=== PATIENT | female | born 1990 | race Caucasian/White ===

== ENCOUNTER → 2020-07-18 11:18 | Outpatient (CLI) | payer MEDICAID, SELFPAY ==
[2020-07-18 13:19] LABS: Absolute Lymphocyte Count 3.44 X10^3/uL (0.83-4.51); Absolute Neutrophil Count 9.6 X10^3/uL (2.0-7.7); Basophil# 0.09 X10^3/uL; Basophil% 0.6 % (0-1); Eosinophil# 0.31 X10^3/uL; Eosinophils% 2.1 % (0-5); Hematocrit 34.6 % (37-47); Hemoglobin 11.2 g/dL (12.0-15.0); Lymphocyte # 3.44 X10^3/ul (4.0); Lymphocyte % 23.3 % (19-41); Mean Corp Hgb Conc 32.4 g/dL (32-36); Mean Corpuscular Hgb 29.6 pg (27.0-32.0); Mean Corpuscular Volume 91.3 fL (81-99); Mean Platelet Vol. 11.3 fl (6.2-12.0); Monocyte# 1.16 X10^3/uL; Monocyte% 7.9 % (0-10); NRBC Flagged by Analyzer 0 % (0-5); Neutrophil # 9.64 X10^3/uL (2.7-7.7); Neutrophil % 65.4 % (47-70); Platelet Count 318 K/mm3 (150-450); RBC Distribution Width CV 15.6 % (11.6-14.6); RBC Distribution Width SD 51.3 fl (35.1-43.9); Red Blood Count 3.79 M/mm3 (4.2-5.4); White Blood Count 14.8 K/mm3 (4.4-11.0)
[2020-07-18 13:27] LABS: Glucose Challenge Gest 1H 50g 108 mg/dL (70-140)
[2020-07-18 14:13] LABS: HIV - WCH Non-Reactive (Nonreactive); Hepatitis B Surface Antigen Non-Reactive (Nonreactive); Hepatitis C Antibody Non-Reactive (Nonreactive); Rubella IgG Reactive (Nonreactive); Syphilis Antibodies Non-reactive
[2020-07-21 07:06] LABS: Chlamydia By Nucleic Acid AMP Negative (Negative)
[2020-07-21 12:35] LABS: Gonococcus By Nucleic Acid AMP Negative (Negative)
[2020-07-22 10:39] LABS: HPV Reflexed? NOT INDICATED
== END ==
PROVIDERS: Visit Provider Obstetrics & Gynecology
DX: Z34.83 Encounter for supervision of other normal pregnancy, third trimester (principal)
CPT/HCPCS: 36415; 82950; 85025; 86703; 86762; 86780; 86803; 87077; 87086; 87088; 87340; 87491; 87591; 88175; G0145

== ENCOUNTER 2020-09-11 04:55 | Inpatient (IN) | payer MEDICAID, SELFPAY ==
[2020-09-11] VITALS (43 sets, daily range): BP systolic 100–155; BP diastolic 51–101; PULSE 64–100; RESP 15–18; TEMP 36–37.1; O2SAT 93–100; BMI 31.3
[2020-09-11] MEDS: Lactated Ringers 1,000 ML 999 ML IV (05:15)
[2020-09-11 05:25] LABS: Absolute Lymphocyte Count 4.03 X10^3/uL (0.83-4.51); Basophil# 0.08 X10^3/uL; Basophil% 0.4 % (0-1); Eosinophil# 0.34 X10^3/uL; Eosinophils% 1.9 % (0-5); Hematocrit 34.8 % (37-47); Hemoglobin 11.6 g/dL (12.0-15.0); Lymphocyte # 4.03 X10^3/ul (0.83-4.51); Lymphocyte % 22.5 % (19-41); Mean Corp Hgb Conc 33.3 g/dL (32-36); Mean Corpuscular Hgb 29.4 pg (27.0-32.0); Mean Corpuscular Volume 88.1 fL (81-99); Mean Platelet Vol. 10.9 fl (6.2-12.0); Monocyte# 1.32 X10^3/uL; Monocyte% 7.4 % (0-10); NRBC Flagged by Analyzer 0 % (0-5); Neutrophil # 11.99 X10^3/uL (2.7-7.7); POSITIVE MORPHOLOGY YES; Platelet Count 314 K/mm3 (150-450); RBC Distribution Width CV 16.1 % (11.6-14.6); RBC Distribution Width SD 52.2 fl (35.1-43.9); Red Blood Count 3.95 M/mm3 (4.2-5.4); White Blood Count 17.9 K/mm3 (4.4-11.0)
[2020-09-11] MEDS: Ondansetron 4 MG/2 ML Vial IV (05:44)
[2020-09-11 05:55] LABS: Differential Indicated SCAN CRITERIA MET
--- NOTE | 2020-09-11 06:21 | HP.PCM.OB_ITS ---
HPI - General General Date of Admission: 09/11/20 HPI Narrative Manisha Ladd is a 29-year-old 6 para 4-0-1-4 presenting with painful contractions and leaking of fluid. complicated by late and limited care. Maternal Data Information ANN Calculator Estimated Delivery Date Method Current WG Current Estimate 09/27/20 Ultrasound #1 37w 6d PFSH Allergy/AdvReac Type Severity Reaction Status Date / Time ciprofloxacin Allergy Hives Verified 09/11/20 05:35 ibuprofen [From Motrin] Allergy Anaphylaxis Verified 09/11/20 05:35 Family History (Updated 09/11/20 @ 06:[address] Janelle Benito MD) Father Diabetes Asthma Mother Asthma Surgical History History of tonsillectomy and adenoidectomy Hx of tonsillectomy Social History Smoking Status: Light Smoker (<10/day) History 6 Elective abortions 0 Hx Para 4 Spontaneous abortions 1 Hx # Term Pregnancies 4 Ectopic pregnancies 0 Hx # Pregnancies 0 Multiple births 0 # of living children 4 Past Pregnancies Del. Date Name GA/Weeks Outcome Route Bth Weight Infant Gen Labor Lgth Anesthesia Del Locatn Provider FOB Unknown Delivery Date: PRIOR DELIVERY HISTORY DEL DATE GEST LAB WT LB WT OZ TYPE ANES LABOR TX 02 Mar 04 42 24 8 12 Vag Local No September 05 38 2 8 4 Vag Local No Apr 02 6 0 0 0 Sab None No 23 Sep 17 37 12 7 6 Vag Epidural No 24 Sep 19 38 2 7 0 [facility] Baby A Baseline: 130 Variability:: Moderate Accelerations:: 15 x 15 Decelerations:: None NST Reactive:: Yes FHR Category:: Category I Uterine Activity:: 2-07/02 Vital Signs Vital Signs Vital Signs: 09/11/20 05:08 09/11/20 05:10 09/11/20 05:23 Temperature 98.4 F Pulse Rate 92 84 Blood Pressure 137/92 H BP Systolic 137 BP Diastolic 92 Pulse Ox 96 98 09/11/20 06:10 09/11/20 06:15 09/11/20 06:19 Temperature Pulse Rate 89 89 82 Blood Pressure 134/78 H BP Systolic 134 BP Diastolic 78 Pulse Ox 98 98 Physical Exam Const alert, oriented x3 and no apparent distress Resp normal respiratory effort, normal air movement and clear to auscultation bilaterally Cardio regular rate, regular rhythm, S1 normal heart sound and S2 normal heart sound GI normal to inspection, nondistended, normoactive bowel sounds, soft to palpation, non-tender and non-distended Inspection: gravid Manual OB Exam: dilated 4 per RN C Michelet exam, effaced 80, station -2 and other Uterus Palpation: other OB Extremity no calf tenderness Labs Labs Labs: Blood Type O POSITIVE Antibody Screen NEGATIVE Hct 34.8 % (37-47) L Hgb 11.6 g/dL (12.0-15.0) L Syphilis Total Ab Non-reactive Rubella IgG Antibody Reactive (Nonreactive) Hep Bs Antigen Non-Reactive (Nonreactive) Neisseria gonorrhoeae DNA (MANOJ) Negative (Negative) HIV 1&2 Antibody Non-Reactive (Nonreactive) Glucose 1 Hr 50 gm 108 mg/dL (70-140) Group B Strep DNA Negative (Negative) Rhogam given: No ANTEPARTUM FLOW CHART VISIT [facility] FU F F AZ U U DATE WK MD WKS HT PN HR M SS BP ED WT AZ GL D EF ST __ ____ ___ __ __ ___ __ __ __ ___ __ __ __ ___ __ 22 Jul JM 2 33 V + + 110/80 0 175 tr ne Jul 21 JM 2 2 B on + 140/98 0 169 1+ - ANTEPARTUM NOTE(S): Aug 14 2020: Jul 18 2020: LMP 12/01/19 COMPREHENSIVE ANTEPARTUM NOTE(S): Aug 14 2020: Manisha is here for PNV. States she is feeling well and able to eat and drink without dificulty. Having good FM. No problems with edema. Declines any genetic/carrier screenings. No complaints today. Urine tr/neg. LSS Aug 14 2020: 33wk, for growth u/s at next visit with late care and 29wk dating u/s. Jul 24 2020: TELEHEALTH NOB VISIT, 40 MINUTE DURATION. Manisha is a 29 yr old A1 with an ANN of 09/27/2020, current GA is 30 w 5 d. She is a new patient to this office, and had her first PNV last week. She states that until the last few weeks she did not know that she was . Manisha resides with her [facility], her four children, and two nieces (ages 11 and 13), of whom she currently has custody. She Jul 18 2020: 29wk, at 29wk/6d with FINAL ANN: 09/27/20 by 29wk u/s with unsure lmp. U/s today anatomy wnl. Arrives for late care, has not previously seen anybody. Previously with Term SVDs, no issues with blood pressure or blood sugars. U/s today shows breech, will consider re-u/s and connie wth with breech and late care. For PNP today, 1hr GTT today, G/c and pap today. Declines genetic screen REVIEW OF SYSTEMS: GENERAL - Denies fever, or chills SKIN - Denies rash, new skin lesions, or change in moles EYES - Denies blurred vision, or change in visual acuity EARS - Denies ear pain, or difficulty hearing NOSE - Denies nasal congestion, discharge, or bleeding MOUTH - Denies sore throat, or difficulty swallowing NECK - Denies pain or swelling RESPIRATORY - Denies shortness of breath, cough, wheezing CARDIOVASCULAR - Denies palpitations, chest pain, orthopnea, PND, peripheral edema, syncope or claudication GASTROINTESTINAL - Denies nausea, vomiting, diarrhea, constipation, Denies abdominal pain, melena and or bright red blood GENITOURINARY - Denies dysuria, frequency of urination, urgency, or hesitancy MUSCULOSKELETAL - Denies joint or muscle pain, or back pain NEUROLOGICAL - Denies localized numbness, weakness, or tingling PSYCHIATRIC - Denies depression, anxiety, substance abuse or suicide attempts ENDOCRINE - Denies heat or cold intolerance, weight loss or gain, increasing thirst HEMATO-IMMUNOLOGIC - Denies easy bruising, bleeding, oral ulcerations or recurrent infections GENETICS SCREENING: Age 35+ years: No Thalassemia: No Neural Tube Defect: No Down Syndrome: No ESDRAS-SACHS: No Sickle Cell Disease: No Hemophilia: No Musc. Dystrophy: No Cystic Fibrosis: No-declines screening [place] Chorea: No Mental Retardation: No Fragile X: No Other genetic: Yes, daughter, CDH Other defects: Yes, daughter, CDH SABs/still births: No Drugs since LMP: No Comments: Daughter epilepsy INFECTION HISTORY: High risk AIDS: No High risk Hepatitis: No Exposed to TB: No Exposed to Herpes: No Rash/viral illness since LMP: No History of STD: No MENSTRUAL HISTORY: *Menses Amount/Duration: 5-7 days* PAST SUMMARY: PARITY: 1. Total Pregnancies............ 6 2. Full Term Pregnancies........ 4 3. Premature.................... 0 4. Abortions - Induced.......... 0 5. Abortions - Spontaneous...... 1 6. Ectopics..................... 0 7. Multiple Births.............. 0 8. Living Children.............. 4 PAST #1: Date of :.................. 04/13/09 Gestation Weeks:................ 6 Length of labor(hours):......... 0 Sex:............................ Weight-lbs:............... 0 Weight-oz:................ 0 Type of Delivery:............... Sab Type of Anesthesia:............. None Place of Delivery:.............. none Treatment of Labor?:.... No Comment: DATE APPROX., NO D+C PAST #2: Date of :.................. 02/24/10 Gestation Weeks:................ 42 Length of labor(hours):......... 24 Sex:............................ F Weight-lbs:............... 8 Weight-oz:................ 12 Type of Delivery:............... Vag Type of Anesthesia:............. Local Place of Delivery:.............. [place] Treatment of Labor?:.... No Comment: IOL, MAN.REMOVAL PLACENTA PAST #3: Date of :.................. 09/09/13 Gestation Weeks:................ 38 Length of labor(hours):......... 2 Sex:............................ M Weight-lbs:............... 8 Weight-oz:................ 4 Type of Delivery:............... Vag Type of Anesthesia:............. Local Place of Delivery:.............. [place] Treatment of Labor?:.... No Comment: PRECIP LABOR PAST #4: Date of :.................. 01/15/17 Gestation Weeks:................ 37 Length of labor(hours):......... 12 Sex:............................ F Weight-lbs:............... 7 Weight-oz:................ 6 Type of Delivery:............... Vag Type of Anesthesia:............. Epidural Place of Delivery:.............. [place] Treatment of Labor?:.... No Comment: IOL, CDH, NICU X 2 M PAST #5: Date of :.................. 01/16/19 Gestation Weeks:................ 38 Length of labor(hours):......... 2 Sex:............................ F Weight-lbs:............... 7 Weight-oz:................ 0 Type of Delivery:............... Vag Type of Anesthesia:............. None Place of Delivery:.............. [place] Treatment of Labor?:.... No Comment: PRECIP LABOR Assessment & Plan (1) 37 weeks gestation of : PLAN: Epidural per pt request Anticipate
[2020-09-11] MEDS: fentaNYL-bupivacaine (epidural) 100 ML BAG EPIDURAL (06:30)
[2020-09-11 07:15] LABS: ALB/GLOB Ratio 0.6 RATIO (0.9-2.4); AST(SGOT) 11 U/L (15-37); Alanine Aminotransfer ALT/SGPT 16 U/L (13-56); Albumin, Serum 2.3 g/dL (3.2-5.0); Alkaline Phosphatase 245 U/L (45-117); Anion Gap 6 (5-15); BUN 8 mg/dL (7-18); BUN/Creat Ratio 16.4 RATIO (10-20); Calcium,Total 8.6 mg/dL (8.5-10.1); Chloride 106 mmol/L (98-107); Creatinine, Serum 0.49 mg/dL (0.55-1.02); EST Glomerular Filtration Rate 161 mL/min (>60); Est Glom Filt Rate - Afr Amer 195 mL/min (>60); Estimated Creatinine Clearance 142.66 ml/min; Globulin 4.1 g/dL (2.2-4.2); Glucose 94 mg/dL (74-106); LDH 169 U/L (84-246); Protein, Total 6.4 g/dL (6.4-8.2); Sodium Level 135 mmol/L (136-145); Uric Acid 4.5 mg/dL (2.6-6.0)
[2020-09-11] MEDS: Oxytocin 30 units/NS 500 ml 30 UNITS/500 ML IV.SOLN 334 UNITS IV (07:28)
[2020-09-11 07:41] LABS: Amphetamine Urine VISTA NEGATIVE (<1000 ng/mL); Barbiturate Urine VISTA NEGATIVE (< 200 ng/mL); Benzodiazepine Urine VISTA NEGATIVE (< 200 ng/mL); Cocaine Urine VISTA NEGATIVE (< 300 ng/mL); Ecstacy Urine VISTA NEGATIVE (< 500 ng/mL); Methadone Urine VISTA NEGATIVE (< 300 ng/mL); PCP Urine VISTA NEGATIVE (< 25 ng/mL); THC Urine VISTA NEGATIVE (< 50 ng/mL); Vista UDS pH Range 7
[2020-09-11 07:56] LABS: Group B Strep DNA By PCR Negative (Negative); Internal Control PASS; Probe Check PASS; Specimen Processing Control PASS
[2020-09-11] MEDS: Acetaminophen 325 MG Tablet PO (08:36)
--- NOTE | 2020-09-11 10:42 | EX.PCM.OBRPT ---
Assessment & Plan (1) (spontaneous vaginal delivery): Maternal Data Information ANN Calculator Estimated Delivery Date Method Current WG Current Estimate 09/27/20 Ultrasound #1 37w 5d Vaginal Delivery Maternal Presentation Maternal Presentation: Active Labor Operative Information Date of Procedure: 09/11/20 Pre-Operative Diagnosis: 37 5/7 weeks gestation, labor Post-Operative Diagnosis: 37 5/7 weeks gestation, Surgery / Procedure Performed: Spontaneous Vaginal Delivery Type of Anesthesia: Epidural Anesthesiologist: Jovani Estimated Blood Loss: 200 ml Findings Description of Procedure: Patient fully dilated and pushed to deliver a vigorous . The infant was placed on the maternal abdomen and further attended by nursery personnel. The cord was doubly clamped and cut. The placenta delivered spontaneously and appeared intact on inspection. Fundus was firm. There was good hemostasis. Presentation: Vertex Amniotic Membrane Rupture Type: Spontaneous Amniotic Fluid Description: Clear Placental Delivery Description: Spontaneous Placenta Disposition: [facility] Cord Vessel Description: 3 Vessels Cord Entanglement: Around neck x 1, loose Nuchal Cord Compression: Without compression Infant A Gender: Male (1 minute): 8 (5 minute): 9 Delayed Cord Clamping: Yes Post Vaginal Delivery Medications Given After Delivery: IV Pitocin Episiotomy Description: None Laceration: None
[2020-09-11] MEDS: CLARIFY ORDER 1 EACH NOTE (10:45)
--- NOTE | 2020-09-11 16:08 | CASEMGMT ---
Social Work Assessment Labor and Delivery Unit Patient Address: [address] [place] [id number] Phone number: [phone] Date of Referral: 09/11/2020 Time of Referral: 1055 Referred By: Dr. Lisa Benito Date of Intervention: 09/11/2020 Time of Intervention: 1545 Reason for Referral: Late care and limited support History obtained from: Medical records and mother of baby (CHRISTINE) Manisha Ladd Household composition: CHRISTINE currently lives with her parents, MOB for older children, and MOB 2 nieces. MOB reports there is enough room in the home, and to feel home situation is safe and adequate. Patient's parent/guardian status: CHRISTINE is a 29-year-old single female. The father of baby is not identified, but is reported to be living in [place]. CHRISTINE reports uncertainty whether the father of baby will be involved in the future. CHRISTINE now has 5 children, different paternity for each child. Minor children include: Romy (born 02/24/2010, delivered in [place] as MOB's parents lived there and MOB moved to [place] to be close to family) Ger (born 09/09/2013, delivered in [place], [place]) Martha (born 01[birth year]2017, delivered at 37 weeks gestation via induction in [facility]; living in [place], [place] at the time however.) Brittney (born 01/16/2019, delivered in [place], [place]) baby is not yet named, but delivered today 09/11/2020. CHRISTINE reports she currently has temporary custody of 2 of her nieces: Gladys, age 13 and Griselda, age 11. Medical History: CHRISTINE is 8, para 4 now 5 after delivering baby boy. care started late at 29 weeks gestation on 07/18/2020. CHRISTINE states she did not know she was , and would not have known until started gaining some weight. MOB reports belief she must have had some periods at the beginning of the . MOB reports she went to all scheduled care appointments. Reports she went to her initial appointment, then had one telehealth, and then went to the next appointment where ultrasound and glucose testing was done. CHRISTINE reports was to have her next appointment this week, but delivered the baby early at 37 weeks gestation. Infant delivered weighing 6 pounds 11 ounces. Apgars 8 and 9 at 1 and 5 minutes of life. *Note that the MOB oldest child developed epilepsy around the age of 5 or 6 and MOB third child was born with CHD, resulting in surgery and a 3-month NICU stay. Educational Status: CHRISTINE has her GED. Reports no issues with reading, writing or learning comprehension. Financial Status: MOB reports to receive child support for her children and then ayala assistance for the nieces. MOB receives food card and WIC. MOB father, with whom the MOB lives, still works. Supplies: MOB reports to have needed infant supplies including a bassinet, car seat, clothing, diapers, wipes, bottles, and at this point 1 can of formula. Childcare/Caregiver(s): CHRISTINE is the primary caregiver of now 7 children. MOB reports she receives help from her parents for short periods of time if needed. Transportation: MOB reports to have a emt driver's license and transportation, denying any issues. Programs/Agencies Involved: Active with job and family services for food, medical, and ayala assistance. Reports to be active with WIC. Reports to have a help me grow worker for her youngest child, and just finishing up help me grow for her third child. Reports that the nieces are active at the counseling center of [facility]. Currently working with [facility] children services related to Gladys and Valerie's placement with the MOB. Children Services/Legal Issues: CHRISTINE denies any legal history for herself. Denies any children services history for herself. Is working with [facility] children services related to her nieces. MOB reports there is court ordered protective supervision to oversee his new placement, which occurred in May 2020. MOB reports she was the only family member who is willing to take both girls, rather than separate them. MOB reports the children services worker checks on the family once every 2 weeks. Behavioral Health Issues: Mental Health History: MOB denies any history of depression, anxiety, bipolar disorder, depression or anxiety. Denies any history of suicidal ideations. Substance Use History: MOB denies any substance use or abuse issues for herself. Denies any use or history of marijuana, heroin, cocaine, meth, or pills. Does drink on a rare occasion, but not during . Reports to typically only have 1 drink when she is out to dinner and has no children around, which MOB reports his not often. Reports to smoke tobacco, about a half a pack every couple of days. Family History: MOB reports believe that her mother has some type of mental health issues. Reports that the oldest child Romy has epilepsy. Reports her son Ger has Tourette's. Reports that Brittney is believed to have autism. The MOB nieces are currently in mental health counseling. Drug Screens: No drug testing noted. Maternal drug screen upon admission negative on 09/11/2020. Baby's urine is negative on 09/11/2020. Meconium is pending. Family/Social Stressors: MOB reports she does not typically get stressed out and describes self to be a patient person. Although MOB does not endorse any current stressors or things that overwhelm her, the MOB has had some significant life changes within this last year. Unplanned though accepted. Obtaining temporary custody of her nieces in May 2020. Moving from [facility], to [facility] in order to be closer to her parents and help her father out who reportedly has cardiac issues. Although her father does have cardiac issues, the MOB reports her father still works. No involvement by the current FOB. Limited involvement by the other fathers. Support Systems: MOB reports she is the type of person who likes to handle things on her own, to be independent. MOB reports she will ask for help when needed, but typically does things herself. CHRISTINE's parents are reported to be sources of support to help watch the children when needed, for short periods of time. Reports to talk daily to her son's aunt. Depression/Shaken Baby/Safe Sleeping: MOB reports awareness of what safe sleeping means. Able to give appropriate responses on shaken baby prevention. Educated to depression and anxiety, risk factors, and importance of seeking out help and support. MOB denies any concerns about depression or anxiety for herself. ASSESSMENT: Met with the MOB in her room, with MOB holding a sleeping baby in a cradle hold. MOB gentle, and intermittently looked at the baby and smiled. MOB reports to feel connection to the baby at this point. MOB held good eye contact. Affect constricted though did smile at appropriate times. MOB reports to have needed supplies for the baby. Denies concerns about lack of support or visitors here at the hospital, and reports desire to be able to go home soon as possible. MOB appearing guarded at times, as evidenced by looking at this chief writer prior to answering questions, almost a delayed response. However after conversation went on, the MOB became more talkative with this chief writer. MOB declined to help me grow referral for this baby, and indicates awareness of how to get infant connected with services if needed. MOB agreeable for social services to check back in tomorrow and provide resources for home-going. CHRISTINE denies any safety concerns in her household or with anybody in her life at this point. CHRISTINE reports she is uncertain of the name for her baby, and wants to speak with her other children this evening before making a decision. PLAN: Social work to continue to follow and assist during hospital stay. We will plan to see CHRISTINE again in the morning on 09/12/2020. -PERLA Ramos MSW *Information documented in this assessment generated with [employer]*
[2020-09-11] MEDS: Acetaminophen 500 MG Tablet 1000 MG PO (19:11)
[2020-09-12 00:10] VITALS: BP 133/57; PULSE 66; RESP 18; TEMP 36.2
[2020-09-12 04:20] VITALS: BP 128/71; PULSE 70; RESP 18; TEMP 36.2
[2020-09-12] MEDS: Acetaminophen 500 MG Tablet 1000 MG PO (04:56)
[2020-09-12 08:06] VITALS: BP 122/75; PULSE 74; RESP 16; TEMP 36.4
--- NOTE | 2020-09-12 09:28 | PCM.DC.SUM ---
Providers Date of Admission: 09/11/20 Reason For Visit: VAGINAL DELIVERY Diagnosis Discharge Diagnosis (1) (spontaneous vaginal delivery): Status: Acute Code(s): O80 - Encounter for full-term uncomplicated delivery Hospital Course Operations None Procedures None Summary of Care Provided Hospital Course: 29yo 6 para 4-0-1-4 admitted in active labor at 37 5/7 weeks. She had an uncomplicated . She was discharged home on day 1. Physical Exam Narrative No issues overnight. Out of bed and ambulating without difficulty. Denies voiding difficulty. Denies heavy lochia. She is bottlefeeding. Const alert, oriented x3 and no apparent distress Resp normal respiratory effort and normal air movement Cardio regular rate, regular rhythm, S1 normal heart sound and S2 normal heart sound Uterus Palpation: uterus fundus firm and other OB fundus nontender Extremity no calf tenderness Neuro oriented x3 ABG / Lab / Microbiology Data Result Diagrams: 09/11/20 05:15 09/11/20 05:15 Microbiology: Microbiology 09/11/20 05:15 SARS-CoV-2 Antigen (Rapid) - Final Interface Orders Microbiology 09/11/20 05:15 Interface Orders SARS-CoV-2 Antigen (Rapid) - Final D/C Instructions Discharge Diet: No restrictions Discharge Activity: Return to Normal Activity, May Shower and May Take a Tub Bath May resume sexual activity in: 4-6 weeks Lifting Restricted to (Lbs): 20 Call your doctor if you observe: Fever of 101 or Higher, Using more than one pad per hour, Shortness of breath, Chest pain, Calf discomfort, Uncontrolled pain and - (Persistent or severe headache) Please Follow Up With: Ronal Bryan MD When: 3 weeks for telehealth follow up 6 weeks for visit Meaningful Use Info Meaningful Use Diagnoses (Choose all that apply): None applicable Discharge Plan Admission Admit Date/Time: 09/11/20 04:55 Primary Reason for Your Visit: Vaginal delivery Attending Provider: Janelle Valdes Instructions Patient Instructions: After a Vaginal
--- NOTE | 2020-09-12 09:44 | NURSING ---
Infant CPR video teaching complete.
[2020-09-12 11:49] VITALS: BP 132/77; PULSE 74; RESP 18; TEMP 36.2
--- NOTE | 2020-09-12 15:50 | CASEMGMT ---
Social Work Labor and Delivery Unit Chart reviewed. Spoke with nursing staff. No new concerns identified. Mother of baby (MOB) reportedly providing care to the baby overnight without issue. Met with the MOB prior to discharge. MOB denies any concerns overnight, or any concerns with home-going. Provided MOB with a [facility] resource list. Provided information on mood and anxiety disorders, including resources for follow-up and support if needed. MOB is connected with the various community agencies already for her older children, and has reported that if additional needs arise has no issues asking for help if needed. Plan: MOB and baby to discharge home. Family available to help. We will monitor for baby's meconium drug screens and make appropriate referrals if indicated. No other services requested or indicated at this time. -IVETTE Ramos, SCIENTIFIC DATABASE CURATOR *Information from this note generated via the [employer]ited[employer] system.*
--- NOTE | 2020-10-01 16:02 | CASEMGMT ---
Social Work Labor and Delivery Unit Meconium drug screen results are back and negative for drugs of abuse. No further referrals are indicated. -IVETTE Ramos, LEAD CYTOGENETIC TECHNOLOGIST
== END 2020-09-12 12:32 | disposition home or self-care (01) | DRG 560 ==
LOC: WPOUT 05:00 → WP 05:00
PROVIDERS: Admitting Provider Obstetrics & Gynecology; Visit Provider Obstetrics & Gynecology
DX: O69.81X0 Labor and delivery complicated by cord around neck, without compression, not applicable or unspecified (principal); F17.200 Nicotine dependence, unspecified, uncomplicated; O99.334 Smoking (tobacco) complicating childbirth; Z3A.37 37 weeks gestation of pregnancy; Z37.0 Single live birth
CPT/HCPCS: 59050; 80053; 80307; 83615; 84550; 85025; 86850; 86900; 86901; 87081; 87426; 87653; 99218; J7120; G0378; J2405

== ENCOUNTER 2021-05-06 13:10 | Emergency (ER) | payer MEDICAID, SELFPAY ==
[2021-05-06 13:12] VITALS: BP 134/77; PULSE 75; RESP 16; TEMP 37.5; O2SAT 94; BMI 24.3
--- NOTE | 2021-05-06 13:29 | EX.ED.VIS.HA ---
HPI History of Present Illness Chief Complaint: Headache Informant: patient Onset/Context/Timing Onset: Days Context: Gradual Timing: Continuous Quality -Headache: Positive for Sharp Current Severity: Moderate Maximum Severity: Moderate Associated Symptoms/Injury Associated Symptoms: Positive for Nausea, Vomiting and Photophobia; Negative for Fever, Sore Throat, Sinus Pressure, Numbness, Tingling, Preceding Aura, Visual Changes, Blurred Vision and Visual Loss Injury - OROPEZA: Negative for Direct Trauma, Fall and Assault Narrative Narrative: 30-year-old female states she had a headache since last Tuesday. Is been constant. Gradual onset and notes diffuse. Associated nausea and vomiting. No diarrhea. Chills without fever. No trauma. No history of significant headaches. No family history of brain aneurysm or intracranial bleed. She has no past medical history. Prior similar symptoms: No Recent Illness/Hospitalization: No PFSH PFSH Medical History no medical history no medical history Home Medications NK 05/06/21 [History Last Taken Unknown] Allergy/AdvReac Type Severity Reaction Status Date / Time ciprofloxacin Allergy Hives Verified 05/06/21 13:11 ibuprofen [From Motrin] Allergy Anaphylaxis Verified 05/06/21 13:11 Family History Father Diabetes Asthma Mother Asthma no significant family history Surgical History History of tonsillectomy and adenoidectomy Hx of tonsillectomy Social History Smoking Status: Light Smoker (<10/day) ROS ROS ED ROS Narrative Headache with nausea and vomiting. Chills. Review of Systems ROS Unobtainable: Denies due to encephalopathy Constitutional Constitutional ED: Reports chills Eyes Eyes: Denies change in vision ENT ENT ED: Denies ear pain or rhinorrhea Cardiovascular Cardiovascular: Denies chest pain Respiratory/Chest Respiratory/Chest: Denies cough, dyspnea or sputum Gastrointestinal Gastrointestinal: Reports nausea and vomiting; Denies abdominal pain or diarrhea Genitourinary Genitourinary ED: Denies dysuria or hematuria Musculoskeletal Musculoskeletal: Denies myalgias Integumentary Denies rash Neurologic Neurologic: Reports headache(s) Psychiatric Psychiatric: Denies depression Endocrine Endocrinology: Denies polyuria Hematologic/Lymphatic Hematologic/Lymphatic: Denies easy bruising Allergic/Immunologic Allergic/Immunologic ED: Denies urticaria EXAM Physical Exam Narrative Exam Narrative: 30-year-old female no acute distress vital signs stable afebrile temperature 99.5. Does not look septic or toxic. HEENT exam dry mandelate EXTR intact. No signs of trauma to her head or face. Neck nontender no meningismus. No lymphadenopathy. Able to flex her chin to chest. Lungs clear to auscultation bilaterally. Heart regular rate and rhythm no murmur. Abdomen soft nontender. Moving all 4 extremities. Neurovascular intact. Normal family engagement specialist strength. Normal dorsal plantar flexion. Neurologic exam normal NIH is 0. Awake alert. Answer questions following commands. No focal motor deficits. Back nontender. Skin unremarkable. No rashes. Const Vital Signs: 05/06/21 13:12 Temperature 99.5 F H Temperature Source Temporal Pulse Rate 75 Respiratory Rate 16 Blood Pressure 134/77 H Blood Pressure Mean 96 Pulse Ox 94 Oxygen Delivery Method Room Air Positive well nourished and well developed; Negative for obese, cachectic, contractures or unkempt General Appearance ED: well developed and NAD; Negative for unkempt, cachectic, contractures, cyanotic, diaphoretic or pallor Nutritional Appearance: Negative for cachectic or obese HEENT Reports normocephalic and moist mucous membranes Negative for trauma or tenderness Eyes PERRL and EOMs intact bilaterally General Eye ED: Negative for pale conjunctiva or scleral icterus Neck no lymphadenopathy, supple, no meningeal signs and no JVD General: Negative for tenderness Resp normal respiratory effort and clear to auscultation bilaterally Auscultation: Negative for rales, rhonchi or wheezes Cardio regular rate, regular rhythm, S1 normal heart sound, S2 normal heart sound and no murmurs GI non-tender and non-distended Auscultation: normoactive bowel sounds Palpation: soft; Negative for firm, tender, guarding or rigid Back/Spine no CVA tenderness General Back: Negative for CVA tenderness or tenderness Cervical Spine: Negative for cervical spine tenderness Thoracic Spine / Upper Back: Negative for thoracic spinal tenderness Extremity normal to inspection and full ROM General Extremety ED: Negative for edema or tenderness General Extremity: Negative for edema Neuro oriented x3, CN's II-XII intact bilaterally and no sensory deficits noted Neuro Narrative: Neurologic exam normal. Sensorium / Orientation: awake, alert, oriented to person, oriented to place and oriented to time; Negative for orientation impaired, lethargic or stuporous Motor Exam: strength 5/5 throughout Psych mental status grossly normal Appearance: Negative for unkempt Attitude: No agitated Mood & Affect: Negative for depressed or tearful Skin General Skin Exam: Negative for jaundice or pallor Lesions: no lesions Rashes: no rashes MDM MDM MDM Narrative Medical decision making narrative: 30-year-old female with a headache for a week. May be COVID-related. COVID test pending. She has normal neurologic exam and otherwise benign evaluation. She be treated IV fluids, Toradol and Zofran. COVID test pending. At this time I do not think she needs imaging. Repeat exam patient is doing well at 3:50 PM. Exam is unchanged. Said her headache improved and now it is returned. Her neurologic exam remains normal. With her COVID test being negative I will obtain a CT of her brain. If that is okay she can be discharged to home. Discharge Plan Triage Chief Complaint: Headache ED Provider: Philip Morales Dx/Rx/DC Orders Clinical Impression: Headache Instructions: ED Headache Unspecified Prescriptions: No Action NK RF: 0 Primary Care Provider: Care Physician,No Primary Referrals: Dilip Adame MD [STAFF PHYSICIAN] - 3-5 Days if not improving Care Physician,No Primary [Primary Care Provider] - Activity Restrictions/Additional Instructions: Plenty of fluids and rest. Alternate Tylenol and Motrin for pain. Return if feeling worse. Disposition Disposition: Home, Self Care
[2021-05-06] MEDS: Ketorolac 30 MG/ML Syringe IV (13:48)
[2021-05-06] MEDS: Ondansetron 4 MG/2 ML Vial IV (13:48)
[2021-05-06] MEDS: 0.9% Normal Saline 1,000 ML 1000 ML IV (13:49)
--- NOTE | 2021-05-06 15:50 | CT_ITS ---
STUDY: CT BRAIN WITHOUT CONTRAST REASON FOR EXAM: Female, 30 years old. headache TECHNIQUE: Transaxial CT imaging of the brain was performed without administration of intravenous contrast material. Individualized dose optimization techniques were used for this CT. COMPARISON: None FINDINGS: Normal calvarium. Normal soft tissues. Normal size ventricles and extra-axial spaces for the patient''s age. Normal white matter tracts of the cerebral hemispheres. Normal basal ganglia and thalami. Normal brainstem. Normal cerebellum. There is no intracranial hemorrhage. There are no findings of an acute ischemic infarction. Normal visualized paranasal sinuses. ASPECTS 10 CT/Brain/Head without Contrast IMPRESSION: There are no acute intracranial findings. Electronically Signed: Lanre Madera MD at 16:25 EST , Service support ,
[2021-05-06 16:46] VITALS: BP 143/72; PULSE 71; RESP 16; O2SAT 98
== END 2021-05-06 16:46 | disposition home or self-care (01) ==
PROVIDERS: Emergency Provider Emergency Medicine; Visit Provider Emergency Medicine
DX: R51.9 Headache, unspecified (principal); R11.2 Nausea with vomiting, unspecified; F17.200 Nicotine dependence, unspecified, uncomplicated; R68.83 Chills (without fever); Z20.822 Contact with and (suspected) exposure to COVID-19
CPT/HCPCS: 70450; 87426; 96361; 96374; 96375; 99283; J7030; J2405

== ENCOUNTER 2021-05-07 20:36 | Emergency (ER) | payer MEDICAID, SELFPAY ==
[2021-05-07 20:37] VITALS: BP 142/79; PULSE 66; RESP 18; TEMP 36.7; O2SAT 99; BMI 24.3
--- NOTE | 2021-05-07 21:00 | EX.ED.DYSGE1 ---
HPI History of Present Illness Chief Complaint: Nausea/Vomiting Detail of Chief Complaint: Nausea and vomiting with headache and aches Informant: patient and spouse/S.O. Onset/Context/Timing Onset: Yesterday Context: Sudden Onset Timing: Intermittent Quality: pain and aches. Respectively Location: EGD withVertex and generalized Current Severity: Moderate Maximum Severity: Severe Worsened by: Photophobia, sonophobia Relieved by: Nothing Associated Symptoms Associated Symptoms: Day nausea vomiting and aches level Narrative Narrative: Patient is a 30-year-old woman whose last menstrual period was the end of March. She presents because of headache and bifrontal discomfort with mild nasal congestion, sore throat. She states she had a fever yesterday. She does complain of aches and myalgias. Today she has had nausea and vomiting. He denies diarrhea. She had a COVID test yesterday which was negative. She denies rash. She does report decreased urine output and gets orthostatic symptoms. Prior similar symptoms: Yes Recent Illness/Hospitalization: Yes PFSH PFSH Home Medications NK 05/06/21 [History Last Taken Unknown] Allergy/AdvReac Type Severity Reaction Status Date / Time ciprofloxacin Allergy Hives Verified 05/07/21 20:40 ibuprofen [From Motrin] Allergy Anaphylaxis Verified 05/07/21 20:40 Family History Father Diabetes Asthma Mother Asthma Surgical History History of tonsillectomy and adenoidectomy Hx of tonsillectomy Social History (Updated 05/07/21 @ 21:[address] Moises Salas MD) household members: family Smoking Status: Light Smoker (<10/day) alcohol intake: current alcohol intake frequency: other ROS ROS ED Constitutional Constitutional ED: Reports chills, fever(s) and sweats; Denies subjective or weight loss Eyes Eyes: Denies blurry vision, change in vision or diplopia ENT ENT ED: Reports rhinorrhea and sore throat; Denies ear pain Cardiovascular Cardiovascular: Denies chest pain, orthopnea, palpitations or racing heartbeat Respiratory/Chest Respiratory/Chest: Reports cough; Denies dyspnea, dyspnea on exertion, orthopnea or sputum Gastrointestinal Gastrointestinal: Reports nausea and vomiting; Denies abdominal pain or diarrhea Genitourinary Genitourinary ED: Denies dysuria, hematuria or urinary frequency Musculoskeletal Musculoskeletal: Reports arthralgias and myalgias Integumentary Denies rash Neurologic Neurologic: Reports headache(s) and weakness; Denies paresthesias Endocrine Endocrinology: Denies polydipsia, polyphagia or polyuria EXAM Physical Exam Const Vital Signs: 05/07/21 20:37 Temperature 98.0 F Temperature Source Temporal Pulse Rate 66 Respiratory Rate 18 Blood Pressure 142/79 H Blood Pressure Mean 100 Pulse Ox 99 Oxygen Delivery Method Room Air Positive well nourished and well developed General Appearance ED: well developed, NAD and other Patient appears ill but not toxic. ; Negative for cyanotic, diaphoretic or pallor HEENT Reports TM's clear and dry mucous membranes Negative for trauma or tenderness Tympanic Membrane ED: Yes TM's clear Mouth ED: Yes dry mucous membranes Mouth: dry mucous membranes Eyes PERRL and EOMs intact bilaterally Eyes Narrative: There is no nystagmus. General Eye ED: Negative for pale conjunctiva or scleral icterus Neck supple and no JVD Neck Narrative: There is no meningeal findings. Resp normal respiratory effort and clear to auscultation bilaterally Effort and Inspection: Negative for pain with movement Cardio regular rate, regular rhythm, S1 normal heart sound, S2 normal heart sound and no murmurs GI normal to inspection, nondistended, normoactive bowel sounds, non-tender and non-distended Palpation: soft Back/Spine no CVA tenderness Cervical Spine: Negative for cervical spine tenderness Thoracic Spine / Upper Back: Negative for thoracic spinal tenderness or paraspinal muscle tenderness Extremity normal to inspection General Extremety ED: Negative for edema or tenderness General Extremity: Negative for edema Neuro oriented x3, CN's II-XII intact bilaterally and no sensory deficits noted Sensorium / Orientation: alert Motor Exam: strength 5/5 throughout Psych mental status grossly normal Mood & Affect: Negative for depressed or tearful Skin no rashes or lesions noted and no wounds General Skin Exam: Negative for jaundice or pallor MDM MDM MDM Narrative Medical decision making narrative: Patient has symptoms because of the viral infection. Suspect this cephalgia due to viral infection. Since she has allergy to Toradol she was treated with Benadryl and Reglan. Clinically she appears dehydrated. 1 L of normal saline was ordered. Patient did receive morphine since she reported no improvement. She was reassessed at 2302. She is smiling. She feels a little better. She was informed that she has a viral illness and may be ill for another 7 to 10 days. Discharge Plan Triage Chief Complaint: Nausea/Vomiting ED Provider: Moises Salas Dx/Rx/DC Orders Clinical Impression: Acute viral disease, Viral cephalgia, Dehydration, mild, Nausea & vomiting Instructions: ED Dehydration (Adult), ED Viral Syndrome (Adult) Prescriptions: No Action NK RF: 0 Primary Care Provider: Care Physician,No Primary Referrals: Care Physician,No Primary [Primary Care Provider] - Doctor,Your [STAFF PHYSICIAN] - Activity Restrictions/Additional Instructions: The name of your doctor or provider is located on your [facility] insurance card. You may be ill for another 7 to 10 days Drink plenty of fluids Take Tylenol or ibuprofen for your headache and discomfort Disposition Disposition: Home, Self Care
[2021-05-07] MEDS: Metoclopramide 10 MG/2 ML Vial IV (21:33)
[2021-05-07] MEDS: DiphenhydrAMINE 50 MG/ML Syringe 25 MG IV (21:33)
[2021-05-07] MEDS: 0.9% Normal Saline 1,000 ML 999 ML IV (21:33)
[2021-05-07] MEDS: Morphine 4 MG/ML Syringe IV (23:18)
== END 2021-05-07 23:42 | disposition home or self-care (01) ==
PROVIDERS: Emergency Provider Emergency Medicine; Visit Provider Emergency Medicine
DX: B34.9 Viral infection, unspecified (principal); R11.2 Nausea with vomiting, unspecified; F17.200 Nicotine dependence, unspecified, uncomplicated; R09.81 Nasal congestion; M79.10 Myalgia, unspecified site; R51.9 Headache, unspecified; E86.0 Dehydration
CPT/HCPCS: 96361; 96374; 96375; 99283; J7030; A4216

== ENCOUNTER → 2022-04-16 | Outpatient (CLI) | payer MEDICAID, SELFPAY ==
[2022-04-16 10:22] LABS: Absolute Lymphocyte Count 2.88 X10^3/uL (0.83-4.51); Absolute Neutrophil Count 11.1 X10^3/uL (2.0-7.7); Basophil# 0.06 X10^3/uL; Basophil% 0.4 % (0-1); Hematocrit 35.9 % (37-47); Hemoglobin 12.4 g/dL (12.0-15.0); Lymphocyte # 2.88 X10^3/ul (0.83-4.51); Lymphocyte % 18.7 % (19-41); Mean Corp Hgb Conc 34.5 g/dL (32-36); Mean Corpuscular Hgb 32.9 pg (27.0-32.0); Mean Corpuscular Volume 95.2 fL (81-99); Mean Platelet Vol. 9.7 fl (6.2-12.0); Monocyte# 0.86 X10^3/uL; Monocyte% 5.6 % (0-10); NRBC Flagged by Analyzer 0 % (0-5); Neutrophil # 11.05 X10^3/uL (2.7-7.7); Neutrophil % 71.8 % (47-70); Platelet Count 362 K/mm3 (150-450); RBC Distribution Width CV 13.5 % (11.6-14.6); RBC Distribution Width SD 47.3 fl (35.1-43.9); Red Blood Count 3.77 M/mm3 (4.2-5.4); White Blood Count 15.4 K/mm3 (4.4-11.0)
[2022-04-16 11:32] LABS: HIV - WCH Non-Reactive (Nonreactive); Hepatitis B Surface Antigen Non-Reactive (Nonreactive); Hepatitis C Antibody Non-Reactive (Nonreactive); Rubella IgG Reactive (Nonreactive); Syphilis Antibodies Non-reactive
[2022-04-17 20:19] LABS: V-Zoster IgG (Immunity) 803 index (Immune >165)
== END | disposition home or self-care (01) ==
PROVIDERS: Visit Provider Obstetrics & Gynecology
DX: Z34.83 Encounter for supervision of other normal pregnancy, third trimester (principal)
CPT/HCPCS: 36415; 85025; 86703; 86762; 86780; 86787; 86803; 87086; 87088; 87340

== ENCOUNTER → 2022-04-30 | Outpatient (CLI) | payer MEDICAID, SELFPAY ==
[2022-04-30 11:24] LABS: Absolute Lymphocyte Count 4.14 X10^3/uL (0.83-4.51); Absolute Neutrophil Count 12.3 X10^3/uL (2.0-7.7); Basophil# 0.09 X10^3/uL; Basophil% 0.5 % (0-1); Eosinophil# 0.39 X10^3/uL; Eosinophils% 2.1 % (0-5); Hematocrit 35.8 % (37-47); Hemoglobin 12.1 g/dL (12.0-15.0); Lymphocyte # 4.14 X10^3/ul (0.83-4.51); Lymphocyte % 22.8 % (19-41); Mean Corp Hgb Conc 33.8 g/dL (32-36); Mean Corpuscular Hgb 32.6 pg (27.0-32.0); Mean Corpuscular Volume 96.5 fL (81-99); Mean Platelet Vol. 10.4 fl (6.2-12.0); Monocyte# 0.99 X10^3/uL; Monocyte% 5.5 % (0-10); NRBC Flagged by Analyzer 0 % (0-5); Neutrophil # 12.29 X10^3/uL (2.7-7.7); Neutrophil % 67.7 % (47-70); POSITIVE MORPHOLOGY YES; Platelet Count 469 K/mm3 (150-450); RBC Distribution Width CV 13.2 % (11.6-14.6); RBC Distribution Width SD 46.9 fl (35.1-43.9); Red Blood Count 3.71 M/mm3 (4.2-5.4); White Blood Count 18.2 K/mm3 (4.4-11.0)
[2022-04-30 11:40] LABS: Creatinine, Urine (random) < 13.00 mg/dL (NO RANGE EST.); Protein, Urine (Random) 17.8 mg/dL (<11.9)
[2022-04-30 12:03] LABS: Differential Indicated SCAN CRITERIA MET
[2022-04-30 12:04] LABS: Atypical Lymphocyte 2+ %; Differential Comment SCANNED
[2022-04-30 12:09] LABS: ALB/GLOB Ratio 0.4 RATIO (0.9-2.4); AST(SGOT) 9 U/L (15-37); Alanine Aminotransfer ALT/SGPT 17 U/L (13-56); Albumin, Serum 2.1 g/dL (3.2-5.0); Alkaline Phosphatase 210 U/L (45-117); Anion Gap 10 (5-15); BUN 7 mg/dL (7-18); Calcium,Total 9.1 mg/dL (8.5-10.1); Chloride 103 mmol/L (98-107); EST Glomerular Filtration Rate 154 mL/min (>60); Est Glom Filt Rate - Afr Amer 187 mL/min (>60); Globulin 4.9 g/dL (2.2-4.2); Glucose 105 mg/dL (74-106); Glucose Challenge Gest 1H 50g 105 mg/dL (70-140); LDH 149 U/L (84-246); Potassium 3.5 mmol/L (3.5-5.1); Sodium Level 135 mmol/L (136-145)
== END | disposition home or self-care (01) ==
LOC: WOBLAB 10:35
PROVIDERS: Visit Provider Obstetrics & Gynecology
DX: Z34.83 Encounter for supervision of other normal pregnancy, third trimester (principal)
CPT/HCPCS: 36415; 80053; 82570; 82950; 83615; 84156; 85025; 87086; 87088

== ENCOUNTER → 2022-05-13 | Outpatient (CLI) | payer MEDICAID, SELFPAY ==
[2022-05-13 15:55] LABS: Reactive Lymphocyte 1+
[2022-05-13 15:56] LABS: Differential Indicated SCAN CRITERIA MET
[2022-05-13 16:04] LABS: Red Blood Count 3.94 M/mm3 (4.2-5.4); White Blood Count 16.6 K/mm3 (4.4-11.0)
[2022-05-13 16:05] LABS: Hemoglobin 12.2 g/dL (12.0-15.0); Mean Corp Hgb Conc 32.1 g/dL (32-36); Mean Corpuscular Volume 96.4 fL (81-99); Mean Platelet Vol. 11.6 fl (6.2-12.0); Neutrophil % 64.8 % (47-70); POSITIVE MORPHOLOGY YES; Platelet Count 324 K/mm3 (150-450); RBC Distribution Width SD 49.7 fl (35.1-43.9)
[2022-05-13 16:06] LABS: Basophil% 0.6 % (0-1); Eosinophils% 3.5 % (0-5); Lymphocyte % 24.7 % (19-41); Monocyte% 5.3 % (0-10); Neutrophil # 10.74 X10^3/uL (2.7-7.7)
[2022-05-13 16:08] LABS: Absolute Lymphocyte Count 4.08 X10^3/uL (0.83-4.51); Absolute Neutrophil Count 10.7 X10^3/uL (2.0-7.7); Eosinophil# 0.58 X10^3/uL; Lymphocyte # 4.08 X10^3/ul (0.83-4.51); Monocyte# 0.87 X10^3/uL
[2022-05-13 16:40] LABS: ALB/GLOB Ratio 0.5 RATIO (0.9-2.4); AST(SGOT) 12 U/L (15-37); Alanine Aminotransfer ALT/SGPT 14 U/L (13-56); Albumin, Serum 2.4 g/dL (3.2-5.0); Alkaline Phosphatase 162 U/L (45-117); Anion Gap 8 (5-15); BUN 4 mg/dL (7-18); BUN/Creat Ratio 7.8 RATIO (10-20); Calcium,Total 8.7 mg/dL (8.5-10.1); Chloride 104 mmol/L (98-107); Creatinine, Serum 0.51 mg/dL (0.55-1.02); EST Glomerular Filtration Rate 150 mL/min (>60); Est Glom Filt Rate - Afr Amer 182 mL/min (>60); Globulin 4.4 g/dL (2.2-4.2); Glucose 98 mg/dL (74-106); LDH 210 U/L (84-246); Potassium 4.1 mmol/L (3.5-5.1); Protein, Total 6.8 g/dL (6.4-8.2); Sodium Level 134 mmol/L (136-145)
[2022-05-13 16:51] LABS: Protein:Creat Ratio 1030 mg/g CRE (0-200)
== END | disposition home or self-care (01) ==
PROVIDERS: Visit Provider Obstetrics & Gynecology
DX: O13.3 Gestational [pregnancy-induced] hypertension without significant proteinuria, third trimester (principal)
CPT/HCPCS: 36415; 80053; 82570; 83615; 84156; 85025; 87086; 87088

== ENCOUNTER → 2022-05-27 | Outpatient (CLI) | payer MEDICAID, SELFPAY ==
[2022-05-27 14:43] LABS: Absolute Lymphocyte Count 4.19 X10^3/uL (0.83-4.51); Absolute Neutrophil Count 12.7 X10^3/uL (2.0-7.7); Basophil# 0.08 X10^3/uL; Basophil% 0.4 % (0-1); Eosinophil# 0.47 X10^3/uL; Eosinophils% 2.5 % (0-5); Hematocrit 37.3 % (37-47); Hemoglobin 12.4 g/dL (12.0-15.0); Lymphocyte # 4.19 X10^3/ul (0.83-4.51); Lymphocyte % 22.5 % (19-41); Mean Corp Hgb Conc 33.2 g/dL (32-36); Mean Corpuscular Hgb 31.7 pg (27.0-32.0); Mean Corpuscular Volume 95.4 fL (81-99); Mean Platelet Vol. 11.6 fl (6.2-12.0); Monocyte# 0.92 X10^3/uL; Monocyte% 4.9 % (0-10); NRBC Flagged by Analyzer 0 % (0-5); Neutrophil # 12.67 X10^3/uL (2.7-7.7); Neutrophil % 68.1 % (47-70); POSITIVE MORPHOLOGY YES; Platelet Count 305 K/mm3 (150-450); RBC Distribution Width CV 14.1 % (11.6-14.6); Red Blood Count 3.91 M/mm3 (4.2-5.4); White Blood Count 18.6 K/mm3 (4.4-11.0)
[2022-05-27 14:45] LABS: Differential Indicated SCAN CRITERIA MET
[2022-05-27 14:58] LABS: Protein, Urine (Random) 78.7 mg/dL (<11.9); Protein:Creat Ratio 1418 mg/g CRE (0-200)
[2022-05-27 14:59] LABS: ALB/GLOB Ratio 0.4 RATIO (0.9-2.4); AST(SGOT) 12 U/L (15-37); Alanine Aminotransfer ALT/SGPT 18 U/L (13-56); Albumin, Serum 2.2 g/dL (3.2-5.0); Alkaline Phosphatase 208 U/L (45-117); Anion Gap 7 (5-15); BUN 7 mg/dL (7-18); BUN/Creat Ratio 11.6 RATIO (10-20); Calcium,Total 8.9 mg/dL (8.5-10.1); Chloride 103 mmol/L (98-107); EST Glomerular Filtration Rate 125 mL/min (>60); Est Glom Filt Rate - Afr Amer 151 mL/min (>60); Globulin 5.2 g/dL (2.2-4.2); Glucose 94 mg/dL (74-106); LDH 234 U/L (84-246); Protein, Total 7.4 g/dL (6.4-8.2); Sodium Level 135 mmol/L (136-145)
[2022-05-27 15:22] LABS: Reactive Lymphocyte 1+
== END | disposition home or self-care (01) ==
LOC: WOBLAB 13:43
PROVIDERS: Visit Provider Obstetrics & Gynecology
DX: O13.3 Gestational [pregnancy-induced] hypertension without significant proteinuria, third trimester (principal); Z3A.00 Weeks of gestation of pregnancy not specified
CPT/HCPCS: 36415; 80053; 82570; 83615; 84156; 85025; 87086; 87088

== ENCOUNTER → 2022-06-04 | Outpatient (CLI) | payer MEDICAID, SELFPAY ==
[2022-06-04 14:02] LABS: Hematocrit 37.4 % (37-47); Hemoglobin 12.1 g/dL (12.0-15.0); Mean Corp Hgb Conc 32.4 g/dL (32-36); Mean Corpuscular Hgb 31.2 pg (27.0-32.0); Mean Corpuscular Volume 96.4 fL (81-99); POSITIVE MORPHOLOGY YES; Platelet Count 319 K/mm3 (150-450); RBC Distribution Width CV 14.6 % (11.6-14.6); RBC Distribution Width SD 50.7 fl (35.1-43.9); Red Blood Count 3.88 M/mm3 (4.2-5.4); White Blood Count 17.3 K/mm3 (4.4-11.0)
[2022-06-04 14:30] LABS: Syphilis Antibodies Non-reactive
[2022-06-04 15:20] LABS: Differential Indicated SCAN CRITERIA MET; Neutrophil % 65.9 % (47-70)
[2022-06-04 15:21] LABS: Basophil% 0.6 % (0-1); Eosinophils% 2.6 % (0-5); Lymphocyte % 23.8 % (19-41); Monocyte% 5.9 % (0-10)
[2022-06-04 15:22] LABS: Absolute Lymphocyte Count 4.13 X10^3/uL (0.83-4.51); Absolute Neutrophil Count 11.4 X10^3/uL (2.0-7.7); Eosinophil# 0.45 X10^3/uL; Lymphocyte # 4.13 X10^3/ul (0.83-4.51); Monocyte# 1.02 X10^3/uL; Neutrophil # 11.43 X10^3/uL (2.7-7.7)
[2022-06-04 15:24] LABS: Differential Comment SCANNED
== END | disposition home or self-care (01) ==
LOC: WOBLAB 12:06
PROVIDERS: Visit Provider Obstetrics & Gynecology
DX: Z34.83 Encounter for supervision of other normal pregnancy, third trimester (principal); Z36.85 Encounter for antenatal screening for Streptococcus B
CPT/HCPCS: 36415; 85025; 86780; 87081

== ENCOUNTER 2022-06-14 06:58 | Inpatient (IN) | payer MEDICAID, SELFPAY ==
[2022-06-14] VITALS (43 sets, daily range): BP systolic 100–139; BP diastolic 51–96; PULSE 64–95; RESP 16; TEMP 36.2–36.8; O2SAT 91–100; BMI 32.0
[2022-06-14] MEDS: Lactated Ringers 1,000 ML 50 ML IV (07:30)
[2022-06-14 08:11] LABS: Absolute Lymphocyte Count 3.55 X10^3/uL (0.83-4.51); Absolute Neutrophil Count 7.1 X10^3/uL (2.0-7.7); Basophil# 0.06 X10^3/uL; Basophil% 0.5 % (0-1); Eosinophil# 0.43 X10^3/uL; Eosinophils% 3.5 % (0-5); Hematocrit 34.8 % (37-47); Hemoglobin 11.5 g/dL (12.0-15.0); Lymphocyte # 3.55 X10^3/ul (0.83-4.51); Lymphocyte % 29.3 % (19-41); Mean Corpuscular Hgb 31.3 pg (27.0-32.0); Mean Corpuscular Volume 94.6 fL (81-99); Mean Platelet Vol. 11.1 fl (6.2-12.0); Monocyte# 0.87 X10^3/uL; Monocyte% 7.2 % (0-10); NRBC Flagged by Analyzer 0 % (0-5); Neutrophil # 7.12 X10^3/uL (2.7-7.7); Neutrophil % 58.8 % (47-70); Platelet Count 309 K/mm3 (150-450); RBC Distribution Width CV 14.3 % (11.6-14.6); RBC Distribution Width SD 49.6 fl (35.1-43.9); Red Blood Count 3.68 M/mm3 (4.2-5.4); White Blood Count 12.1 K/mm3 (4.4-11.0)
[2022-06-14] MEDS: Oxytocin 15 Units/NS 250ml 15 UNITS/250 ML IV.SOLN 2 UNITS IV (08:20)
[2022-06-14 08:32] LABS: ALB/GLOB Ratio 0.5 RATIO (0.9-2.4); AST(SGOT) 12 U/L (15-37); Alanine Aminotransfer ALT/SGPT 13 U/L (13-56); Albumin, Serum 2.1 g/dL (3.2-5.0); Alkaline Phosphatase 189 U/L (45-117); Anion Gap 7 (5-15); BUN 8 mg/dL (7-18); BUN/Creat Ratio 16.1 RATIO (10-20); Calcium,Total 8.8 mg/dL (8.5-10.1); Chloride 106 mmol/L (98-107); EST Glomerular Filtration Rate 156 mL/min (>60); Est Glom Filt Rate - Afr Amer 188 mL/min (>60); Estimated Creatinine Clearance 137.33 ml/min; Glucose 92 mg/dL (74-106); LDH 133 U/L (84-246); Protein, Total 6.1 g/dL (6.4-8.2); Sodium Level 135 mmol/L (136-145)
[2022-06-14 10:12] LABS: Amphetamine Urine VISTA NEGATIVE (<1000 ng/mL); Barbiturate Urine VISTA NEGATIVE (< 200 ng/mL); Benzodiazepine Urine VISTA NEGATIVE (< 200 ng/mL); Cocaine Urine VISTA NEGATIVE (< 300 ng/mL); Ecstacy Urine VISTA NEGATIVE (< 500 ng/mL); Methadone Urine VISTA NEGATIVE (< 300 ng/mL); PCP Urine VISTA NEGATIVE (< 25 ng/mL); THC Urine VISTA NEGATIVE (< 50 ng/mL); Vista UDS pH Range 7
--- NOTE | 2022-06-14 11:23 | PCM.HP.BLA ---
History and Physical Date of Admission: 06/14/22 Chief complaint: Induction of labor gestational hypertension History present illness: 31-year-old Erich P5 at 37 weeks and 1 day with ANN 07/04/2022 arrives for induction of labor with gestational hypertension. Denies headache, visual changes, chest pain, shortness of breath, nausea vomit, right upper quadrant pain. Patient states good movement. is complicated by gestational hypertension, grand multipara Obstetric history: G1: SAB G2: Term G3: Term G4: Term G5: Term G6: Term G7: Current Past medical history: Gestational hypertension Medications: vitamin, labetalol 100 mg twice daily Past surgical history: Tonsils and adenoids Allergies: Cipro Family history: Denies history DVT or PE Social history: 1 pack/day smoker, denies alcohol or drug use Review of systems: Besides above pertinent positives a full review of systems was performed and found to be negative Physical exam: Vitals: Pulse 69 temperature 97.9 ?F SPO2 97% on room air General: Normal-appearing no acute distress HEENT: Normocephalic/atraumatic no cervical of adenopathy Cardiac/respiratory: No use of accessory muscles, nonlabored breathing Abdomen: Soft, nontender, gravid Pelvic exam: Cervical exam 360/-3. AROM clear fluid. FSE placed Extremities: No peripheral edema normal peripheral pulses Psych: Normal affect and demeanor nonpressured speech Labs: White blood cell count 12.1 hemoglobin 11.5 hematocrit 34.8% platelets 309. Sodium 135 potassium 4.0 creatinine 0.5 AST 12 ALT 13 LDH 133. Blood type O+ antibody negative Assessment plan: 31-year-old Erich P5 at 37 weeks and 1 day for induction of labor for gestational hypertension Admit labor and delivery CEFM GBS negative Induction of labor via Pitocin. AROM clear fluid Gestational hypertension: On labetalol 100 mg twice daily, continue monitor signs and symptoms of severe preeclampsia. Routine orders Anesthesia to see
[2022-06-14] MEDS: LACTATED RINGERS 500 ML 999 ML IV ×2 (11:25→15:34)
[2022-06-14] MEDS: Ondansetron 4 MG/2 ML Vial IV (12:25)
[2022-06-14] MEDS: fentaNYL-bupivacaine (epidural) 100 ML BAG EPIDURAL (12:34)
[2022-06-14 12:50] LABS: Chlamydia Trachomatis by PCR Negative (Negative); Neisserai gonorrhoeae by PCR Negative (Negative); Probe Check PASS; Sample Adequacy Control PASS; Specimen Processing Control PASS
--- NOTE | 2022-06-14 16:20 | EX.PCM.OBRPT ---
Maternal Data Information ANN Calculator Estimated Delivery Date Method Current WG Current Estimate 09/27/20 Ultrasound #1 129w 2d Vaginal Delivery Operative Information Date of Procedure: 06/14/22 Pre-Operative Diagnosis: [place] intrauterine , chronic hypertension on medication Post-Operative Diagnosis: [place] intrauterine , chronic hypertension on medication Surgery / Procedure Performed: Spontaneous Vaginal Delivery Type of Anesthesia: Epidural Estimated Blood Loss: 300cc Findings Description of Procedure: During pushing there was heart rate decelerations, discussion of vacuum-assisted vaginal delivery was had. Discussed risks/benefits/alternatives. Risks include but are not limited to: Scalp laceration, cephalohematoma, subgaleal hemorrhage, maternal laceration. Patient consented. Vacuum was placed, no suction applied. Patient made good progress with maternal pushing efforts and heart rate had recovered, vacuum removed. Spontaneous vaginal delivery of viable infant male. Nuchal cord x1, loose, reduced. Baby to mom. Cord clamped and cut. Spontaneous delivery of placenta. Infant A Gender: Male (1 minute): 8 (5 minute): 9 Complication Complications: None
[2022-06-14] MEDS: Oxytocin 15 Units/NS 250ml 15 UNITS/250 ML IV.SOLN 83 UNITS IV (16:43)
[2022-06-14] MEDS: Labetalol 100 MG Tablet PO (22:16)
[2022-06-15] VITALS (8 sets, daily range): BP systolic 100–136; BP diastolic 52–65; PULSE 68–80; RESP 16; TEMP 36.1–37.1; O2SAT 93–97
[2022-06-15] MEDS: Acetaminophen 500 MG Tablet 1000 MG PO (02:15)
--- NOTE | 2022-06-15 07:42 | PCM.PN.OB ---
Subjective Subjective Doing well. Formula feeding. Lochia minimal. Having some cramping. Objective Data Objective Data Vital Signs: Vital Signs Temp Pulse Resp BP Pulse Ox O2 Del Method 98.7 F 79 16 100/52 L 94 Room Air 06/15/22 04:30 06/15/22 04:31 06/15/22 04:30 06/15/22 04:31 06/14/22 17:04 06/15/22 04:30 Oxygen Delivery Method Room Air Weight: 82 kg Body Mass Index (BMI) 32.0 Intake & Output: Intake and Output for Last 24 Hours 06/13/22 06/14/22 06/15/22 23:59 23:59 23:59 Intake Total 2342.36 / 2342.36 Output Total 2100 / 2100 Balance 242.36 / 242.36 Lab / Micro Data Attestation: I reviewed the patient's lab results. Result Diagrams: 06/14/22 07:56 06/14/22 07:56 Labs: Laboratory Results - last 24 hr 06/14/22 07:56: WBC 12.1 H, RBC 3.68 L, Hgb 11.5 L, Hct 34.8 L, MCV 94.6, MCH 31.3, MCHC 33.0, RDW Std Deviation 49.6 H, RDW Coeff of Nikki 14.3, Plt Count 309, MPV 11.1, Immature Gran % (Auto) 0.700, Neut % (Auto) 58.8, Lymph % (Auto) 29.3, [place] % (Auto) 7.2, Eos % (Auto) 3.5, Baso % (Auto) 0.5, Absolute Neuts (auto) 7.1, Absolute Lymphs (auto) 3.55, Nucleated RBC % 0 06/14/22 07:56: Blood Type O POSITIVE, Antibody Screen NEGATIVE 06/14/22 07:56: Sodium 135 L, Potassium 4.0, Chloride 106, Carbon Dioxide 22.0, Anion Gap 7, BUN 8, Creatinine 0.50 L, Estim Creat Clear Calc 137.33, Est GFR (MDRD) Af Amer 188, Est GFR (MDRD) Non-Af 156, BUN/Creatinine Ratio 16.1, Glucose 92, Calcium 8.8, Total Bilirubin 0.30, AST 12 L, ALT 13, Alkaline Phosphatase 189 H, Lactate Dehydrogenase 133, Total Protein 6.1 L, Albumin 2.1 L, Globulin 4.0, Albumin/Globulin Ratio 0.5 L 06/14/22 09:45: Chlam trachomat DNA PCR Negative, N.gonorrhoeae DNA (PCR) Negative 06/14/22 09:45: Urine Opiates Screen NEGATIVE, Urine Methadone Screen NEGATIVE, Ur Barbiturates Screen NEGATIVE, Ur Phencyclidine Scrn NEGATIVE, Ur Amphetamines Screen NEGATIVE, MDMA (Ecstasy) Screen NEGATIVE, U Benzodiazepines Scrn NEGATIVE, Urine Cocaine Screen NEGATIVE, U Cannabinoids Screen NEGATIVE, Ur Drug Screen Comment Physical Exam Const alert, oriented x3 and no apparent distress HEENT normocephalic Head and Scalp: atraumatic Neck full ROM Resp normal respiratory effort Cardio regular rate GI normal to inspection, nondistended, normoactive bowel sounds GI Narrative: Uterus 2 cm below umbilicus Back/Spine normal ROM Extremity normal to inspection Extremity Narrative: Minimal pedal edema Neuro no focal motor deficits and no sensory deficits noted Psych mental status grossly normal and affect normal Assessment & Plan (1) (spontaneous vaginal delivery): PLAN: day 1 status post . Complicated by chronic hypertension on labetalol 100 mg twice daily. Blood pressures well controlled. Patient feeling well. Desires home-going today. Follow-up 1 week blood pressure check.
--- NOTE | 2022-06-15 07:43 | DCINST_ITS ---
Discharge Instructions Diet Discharge Diet: No restrictions Activity Discharge Activity: Return to Normal Activity and May Shower May resume sexual activity in: 4-6 weeks Weight Bearing Status: Weight bearing as tolerated Lifting Restrictions: No greater than 25 pounds Dressing / Incision Call your doctor if you observe: Fever of 101 or Higher, Change in Color, Inability to urinate, Using more than 1 pad per hour, Shortness of breath, Dizziness, Swelling in the ankles, Chest pain and Calf discomfort Follow Up Care Please Follow Up With: Ronal Bryan MD When: 1 week RN BP check, 6-week visit Test Results: Test results from this visit will be discussed in further detail at your follow- up appointment, if applicable. Discharge Plan Admission Admit Date/Time: 06/14/22 06:58 Primary Reason for Your Visit: Vaginal delivery Attending Provider: Ronal Bryan Primary Care Provider: Carolina Hsu Primary Discharge Orders/Prescriptions Prescriptions: No Action labetalol 100 mg tablet 100 mg PO BID Label Comments: TAKE 1 TABLET BY MOUTH TWICE A DAY PNV cmb#[id number]-ferrous fumarate-FA [] 28 mg iron- 800 mcg Tablet 1 tab PO DAILY Referrals / Follow Up: Care Physician,No Primary [Primary Care Provider] - Disposition Disposition (needs filled in before D/C Order can be placed): Home, Self Care
[2022-06-15] MEDS: Labetalol 100 MG Tablet PO ×2 (10:51→21:49)
[2022-06-16 02:06] VITALS: BP 117/56; PULSE 69; PULSE 71; RESP 16; TEMP 36.1; O2SAT 95
--- NOTE | 2022-06-16 06:42 | PCM.DC.BLA ---
Discharge Summary Date of Admission: 06/14/22 Date of Discharge: 06/16/22 Summary: Patient arrived on 06/14/2022 for induction of labor at term with gestational hypertension. Patient subsequently delivered vaginally on 06/14/2022. Blood pressures well controlled . Stop labetalol home-going. Discharged home on 06/16/2022 Meaningful Use Info Meaningful Use Diagnoses (Choose all that apply): None applicable Discharge Plan Admission Admit Date/Time: 06/14/22 06:58 Primary Reason for Your Visit: Vaginal delivery Attending Provider: Ronal Bryan Primary Care Provider: Care Physician,[place] Primary Instructions Additional Instructions / Restrictions: Regular diet. Weightbearing as tolerated. Okay to shower. No intercourse for 4 to 6 weeks Discharge Orders/Prescriptions Prescriptions: Continued PNV cmb#95-ferrous fumarate-FA [] 28 mg iron- 800 mcg Tablet 1 tab PO DAILY Discontinued labetalol 100 mg tablet 100 mg PO BID Label Comments: TAKE 1 TABLET BY MOUTH TWICE A DAY Referrals / Follow Up: Care Physician,No Primary [Primary Care Provider] - Disposition Disposition (needs filled in before D/C Order can be placed): Home, Self Care
--- NOTE | 2022-06-16 06:43 | PCM.PN.OB ---
Subjective Subjective No overnight complaints. Denies headache, vision changes, chest pain, shortness of breath, nausea vomit, right upper quadrant pain. Objective Data Objective Data Vital Signs: Vital Signs Temp Pulse Resp BP Pulse Ox O2 Del Method 97.0 F L 69 16 117/56 L 95 Room Air 06/16/22 02:06 06/16/22 02:06 06/16/22 02:06 06/16/22 02:06 06/16/22 02:06 06/16/22 02:06 Oxygen Delivery Method Room Air Weight: 180 lb 12.465 oz Body Mass Index (BMI) 32.0 Intake & Output: Intake and Output for Last 24 Hours 06/14/22 06/15/22 06/16/22 23:59 23:59 23:59 Intake Total 2342.36 / 2342.36 Output Total 2100 / 2100 Balance 242.36 / 242.36 Lab / Micro Data Result Diagrams: 06/14/22 07:56 06/14/22 07:56 Physical Exam Const alert, oriented x3, no apparent distress, average body habitus, healthy appearing and well nourished HEENT normocephalic and moist oral mucous membranes Eyes PERRL Neck full ROM Resp normal respiratory effort, no retractions and no use of accessory muscles GI GI Narrative: Soft, nontender, uterus firm and below umbilicus Extremity normal to inspection and full ROM Neuro moves all extremities and no focal motor deficits Psych mental status grossly normal, affect normal, speech normal and activity/motor behavior normal Assessment & Plan (1) (spontaneous vaginal delivery): PLAN: day 2. Pain well controlled. Formula feeding. Gestational hypertension, patient asymptomatic and blood pressures well controlled. We will stop labetalol 100 mg twice daily home-going, patient to be followed by an office nurse for blood pressures. Okay to discharge home today
[2022-06-16 08:11] VITALS: BP 125/77; PULSE 73; RESP 16; TEMP 36.3; O2SAT 98
[2022-06-16 08:13] VITALS: BP 125/77; PULSE 73
--- NOTE | 2022-06-16 09:30 | CASEMGMT ---
Social Work Assessment Labor and Delivery Unit Patient Address: [address] [place], [place] [id number] Phone number: [phone] Date of Referral: 06/14/2022 Time of Referral: 1914 Referred By: Dr. Ramirez name Date of Intervention: 06/16/2022 Time of Intervention: Approximately 0930 Reason for Referral: Resources and late care History obtained from: Medical records including prior social work assessment from delivery in 2020 and mother of baby (CHRISTINE) Manisha Ladd Household composition: CHRISTINE reports to live with her parents and older children including a niece home MOB has custody of. Reports home situation is safe and adequate. Patient's parent/guardian status: CHRISTINE is a 31-year-old single female. The FOB is reported as Ronal Wagner and is the father of CHRISTINE's 2 youngest children. CHRISTINE reports she and the FOB are not really together. Denies any type of safety concerns with this man. All of CHRISTINE's children have different paternity except for the youngest 2 children. CHRISTINE's children include: Romy (born 02/24/2010, delivered in [place] as MOB's parents lived there and MOB moved to [place] to be close to family) Ger (born 09/09/2013, delivered in [place], [place]) Martha (born 01[birth year]15[birth year]2017, delivered at 37 weeks gestation via induction in [facility]; living in [place], [place] at the time however.) Brittney (born 01/16/2019, delivered in [place], [place]) Gadiel Ladd (09/11/2020), delivered at [facility], father of baby Ronal Wagner. Shock baby, Cruz Wagner (06/14/2022) CHRISTINE reports to have permanent custody of her brothers daughter Griselda who is 13. At one point CHRISTINE had temporary custody of another niece, Gladys who is now 15. Gladys however is in residential care due to behavioral issues. Medical History: CHRISTINE is 9, para 5 now 6 after delivering Cruz. care was late, with CHRISTINE reporting to this gag writer that took many urine test that were negative and finally received confirmation of via ultrasound. CHRISTINE has a history of gestational hypertension. Cruz delivered weighing 6 pounds 6 ounces. Apgars 8 and 9 at 1 and 5 minutes of life respectively. Educational Status: CHRISTINE has her GED. Reports no issues with reading, writing or learning comprehension. Financial Status: CHRISTINE does not work outside the home and does receive child support and ayala assistance. Denies any financial concerns. Does live with her parents to are also supportive as they can be. Supplies: CHRISTINE reports to have all necessary supplies to care for the infant including the baby having his own sleep space and reports to have a car seat. CHRISTINE is formula feeding and has no concerns about getting formula. Childcare/Caregiver(s): CHRISTINE is the primary caregiver of all of her children. Does receive help and when needed from her parents. Transportation: MOB denies any type of transportation issues. Programs/Agencies Involved: CHRISTINE reports to have food and medical through job and family services. Does not have WIC but reports to be aware of this service. Reports is already active with help [employer] services. Denies any other agency involvement. Children Services/Legal Issues: No reports of any legal issues. Denies any history of children services for issues relating to CHRISTINE's parenting. Was involved with [facility] children services when the CHRISTINE's nieces were transitioning to live with the MOB. No current children services involvement. Behavioral Health Issues: Mental Health History: CHRISTINE denies any history of mental health issues and denies any history of depression. Substance Use History: CHRISTINE denies any type of substance use issues for herself. Does have a history of rare alcohol use but not during . Does smoke tobacco, about 1 pack/day. Family History: Per prior social work assessment CHRISTINE reported to believe that her mother has some type of mental health issues. Reports that the oldest child Romy has epilepsy. Reports her son Ger has Tourette's. Reports that Brittney is believed to have autism. The CHRISTINE nieces are currently in mental health counseling. Drug Screens: No testing noted. Family/Social Stressors: Denies any type of stressors or concerns. CHRISTINE has previously described herself as a patient person and does not get upset easily. Support Systems: MOB reports to be the type of person who likes to handle things on her own, but will ask for help when needed. Reports to have an outlet for emotional support, a family member of one of her sons. Depression/Shaken Baby/Safe Sleeping: Reviewed topics and provided resources. ASSESSMENT: Met with MOB in room, introducing to self and social work role. Reviewed with MOB this gag writer had met with MOB during prior delivery. MOB up and moving around the room, good eye contact and pleasant. MOB reports to feel ready to go home and wants to get home to see her other children. Denies any type of concerns with home-going. Denies any type of food security issues, issues with housing, transportation or supplies. MOB reports to feel connection to this baby. Reports this will be her last baby however. MOB does have support from [employer] which can be a resource if MOB should need additional support or referrals after home-going. No voiced concerns from nursing regarding parent-child interactions or bonding. MOB has not had any type of support people with her during this stay. Addressed this with MOB. MOB reports that this has not bothered her whatsoever, and due to having some people around her all the time, that this time with her baby alone is appreciated. Although appreciating the time with her , reports to be ready to go home and see her other children. PLAN: MOB and infant will discharge home. Community resource information provided and information on mood and anxiety disorders. No other services requested or indicated. -PERLA Ramos MSW *This note was generated with Vigo dictation software. It may contain incorrect words, spelling, and punctuation that were not noted in review of the chart prior to signing*
== END 2022-06-16 10:20 | disposition home or self-care (01) | DRG 560 ==
PROVIDERS: Admitting Provider Obstetrics & Gynecology; Referring Provider Obstetrics & Gynecology; Visit Provider Obstetrics & Gynecology
DX: O13.4 Gestational [pregnancy-induced] hypertension without significant proteinuria, complicating childbirth (principal); Z37.0 Single live birth; F17.210 Nicotine dependence, cigarettes, uncomplicated; O69.81X0 Labor and delivery complicated by cord around neck, without compression, not applicable or unspecified; O76 Abnormality in fetal heart rate and rhythm complicating labor and delivery; O99.334 Smoking (tobacco) complicating childbirth; Z3A.37 37 weeks gestation of pregnancy
CPT/HCPCS: 59025; 59050; 80053; 80307; 83615; 85025; 86850; 86900; 86901; 87491; 87591; 99221; J7120; G0378; J2405